=== PATIENT | male | born 1955 | race Caucasian/White ===

== ENCOUNTER 2019-09-15 11:40 | Emergency (ER) | payer MEDICAID, OTHER ==
[~2019-09-15] VITALS: Ht 175.3 cm; Wt 72.0 kg
[2019-09-15] MEDS ORDERED: TETANUS, DIPHTHERIA, PERTUSSIS VAC/PF 0.5ML (>7YR OLD) IM ONE (14:30)
[2019-09-15 15:48] LABS: BASOPHILS % 0.2 % (0.0-2.0); EOSINOPHILS % 4.9 % (0.0-5.0); HEMATOCRIT. 41.4 % (42.0-52.0); HEMOGLOBIN. 13.9 g/dL (14.0-18.0); LYMPHOCYTES % 20.8 % (20.0-50.0); MEAN CORPUSCULAR HEMOGLOBIN 32.2 pg (28.0-32.0); MEAN CORPUSCULAR VOLUME 95.7 fL (80.0-94.0); MEAN PLATELET VOLUME 7.7 fl (7.4-10.4); MONOCYTES % 4.7 % (2.0-8.0); NEUTROPHILS % 69.4 % (40.0-76.0); PLATELET 342 x1000/uL (130-400); RED BLOOD CELL COUNT 4.33 mill/uL (4.7-6.1); RED CELL DISTRIBUTION WIDTH 16.8 % (11.6-14.6)
[2019-09-15 15:55] LABS: CHLORIDE 108 mEq/L (98-107)
[2019-09-15] MEDS ORDERED: ACETAMINOPHEN 325MG TABLET PO ONE (16:45)
[2019-09-15] MEDS ORDERED: KETOROLAC 60MG/2ML VIAL IM ONE (16:45)
[2019-09-15 18:13] VITALS: BP 162/95
== END 2019-09-15 18:21 | disposition home or self-care (01) ==
LOC: ER 11:40
DX: S00.83XA Contusion of other part of head, initial encounter (principal); S40.812A Abrasion of left upper arm, initial encounter; S60.413A Abrasion of left middle finger, initial encounter; R05 Cough; R03.0 Elevated blood-pressure reading, without diagnosis of hypertension; W01.198A Fall on same level from slipping, tripping and stumbling with subsequent striking against other object, initial encounter; Y93.01 Activity, walking, marching and hiking; Y92.480 Sidewalk as the place of occurrence of the external cause; J44.9 Chronic obstructive pulmonary disease, unspecified; M54.30 Sciatica, unspecified side; Z23 Encounter for immunization
CPT/HCPCS: 36415; 70450; 70486; 71045; 80053; 83880; 84484; 85025; 90471; 90715; 93005; 96372; 99285; J1885

== ENCOUNTER 2019-11-29 15:33 | Inpatient (IN) | payer OTHER ==
[~2019-11-29] VITALS: Ht 167.6 cm; Wt 84.4 kg
[2019-11-29] MEDS ORDERED: HALOPERIDOL LACTATE 5MG/ML VIAL IM ONE (16:30)
[2019-11-29 17:01] LABS: BASOPHILS % 0.7 % (0.0-2.0); EOSINOPHILS % 1.3 % (0.0-5.0); HEMATOCRIT. 43.9 % (42.0-52.0); HEMOGLOBIN. 15.1 g/dL (14.0-18.0); LYMPHOCYTES % 19.7 % (20.0-50.0); MEAN CORPUSCULAR HEMOGLOBIN 31.3 pg (28.0-32.0); MEAN PLATELET VOLUME 7.7 fl (7.4-10.4); MONOCYTES % 4.7 % (2.0-8.0); NEUTROPHILS % 73.6 % (40.0-76.0); PLATELET 335 x1000/uL (130-400); RED BLOOD CELL COUNT 4.82 mill/uL (4.7-6.1); RED CELL DISTRIBUTION WIDTH 15.2 % (11.6-14.6)
[2019-11-29 17:04] LABS: CHLORIDE 96 mEq/L (98-107)
[2019-11-29 17:19] LABS: ETHANOL BLOOD 336 mg/dL
[2019-11-29] MEDS ORDERED: POTASSIUM CHLORIDE INJ 40 MEQ in DEXT 5% WATER 250 ML IV ONE (18:30)
[2019-11-29] MEDS ORDERED: POTASSIUM CHLORIDE INJ 40 MEQ in DEXT 5% WATER 250 ML IV SCH (19:00)
[2019-11-29 21:30] VITALS: BP 133/66
[2019-11-29] MEDS ORDERED: CEFTRIAXONE 1 G PREMIX 50 ML IV SCH (23:15)
[2019-11-29] MEDS ORDERED: ONDANSETRON HCL 4MG/2ML INJ IV PRN (23:15)
[2019-11-30] VITALS: BP 122/65
[2019-11-30] MEDS: THIAMINE HCL 100MG TABLET PO SCH (01:00)
[2019-11-30] MEDS ORDERED: CEFTRIAXONE 1 G PREMIX 50 ML IV SCH (01:00)
[2019-11-30] MEDS: DEXT 5%/0.45% NACL KCL 20MEQ/L 1,000 ML IV SCH ×3 (03:30→17:42)
[2019-11-30] MEDS: PANTOPRAZOLE SODIUM 40 MG/VIAL IV SCH (04:00)
[2019-11-30 04:29] VITALS: BP 114/50
[2019-11-30 05:55] LABS: CHLORIDE 103 mEq/L (98-107)
[2019-11-30 06:04] LABS: T4 FREE 0.92 ng/dL (0.76-1.46)
[2019-11-30 06:15] LABS: BASOPHILS % 1.4 % (0.0-2.0); EOSINOPHILS % 3.6 % (0.0-5.0); HEMATOCRIT. 41.3 % (42.0-52.0); HEMOGLOBIN. 14.2 g/dL (14.0-18.0); LYMPHOCYTES % 26.9 % (20.0-50.0); MEAN CORPUSCULAR HEMOGLOBIN 31.4 pg (28.0-32.0); MEAN CORPUSCULAR VOLUME 90.9 fL (80.0-94.0); MEAN PLATELET VOLUME 7.7 fl (7.4-10.4); MONOCYTES % 8.9 % (2.0-8.0); NEUTROPHILS % 59.2 % (40.0-76.0); PLATELET 312 x1000/uL (130-400); RED BLOOD CELL COUNT 4.54 mill/uL (4.7-6.1); RED CELL DISTRIBUTION WIDTH 14.7 % (11.6-14.6)
[2019-11-30 08:00] VITALS: BP 125/58
[2019-11-30] MEDS: ACETAMINOPHEN 325MG TABLET PO PRN ×2 (09:14→16:27)
[2019-11-30] MEDS: ENOXAPARIN 40MG/0.4ML SYR SUBCUT SCH (09:14)
[2019-11-30] MEDS ORDERED: POTASSIUM CHLORIDE 20MEQ TABLET SR PO SCH (11:00)
[2019-11-30 12:00] VITALS: BP 129/58
[2019-11-30 12:56] LABS: CHLORIDE 100 mEq/L (98-107)
[2019-11-30] MEDS ORDERED: LORAZEPAM 2MG/ML CPJ IV PRN (13:15)
[2019-11-30] MEDS ORDERED: ACETAMINOPHEN 325MG TABLET PO PRN (13:15)
[2019-11-30] MEDS ORDERED: ACETAMINOPHEN 650MG SUPP PR PRN (13:15)
[2019-11-30] MEDS ORDERED: IPRATROPIUM/ALBUTEROL 0.5-3(2.5)MG/3ML NEB HHN PRN (13:30)
[2019-11-30 13:48] LABS: BG BASE EXCESS 1.5 mmol/L (-2.0-2.0); BG CARBOXYHEMOGLOBIN 0.8 % (0.5-1.5); BG DEOXYHEMOGLOBIN 6.1 % (0.0-5.0); BG FRACTION INSPIRED OXYGEN 21; BG HCO3 ACT 25.8 mmol/L (22.0-26.0); BG METHEMOGLOBIN 0.1 % (0.0-1.5); BG OXYGEN SATURATION 93.8 % (92.0-98.5); BG PCO2 39.6 mmHg (35.0-45.0); BG PH 7.432 (7.350-7.450); BG PO2 74.1 mmHg (75.0-100.0); BG SAMPLE SITE RIGHT BRACHIAL; BG TOTAL HEMOGLOBIN 14.2 g/dL (12.0-18.0); BG VENT MODE ROOM AIR
[2019-11-30] MEDS ORDERED: POTASSIUM CHLORIDE INJ 40 MEQ in DEXT 5% WATER 250 ML IV SCH (14:30)
[2019-11-30] MEDS: NICOTINE 14MG PATCH TD SCH (14:30)
[2019-11-30] MEDS: FOLIC ACID 1MG TABLET PO SCH (14:30)
[2019-11-30] MEDS: MULTIVITAMINS,THER W-MINERALS TABLET PO SCH (14:30)
[2019-11-30] MEDS: PIPERACILLIN/TAZOBACTAM 3.375 G in DEXT 5% WATER 100 ML IV SCH ×2 (14:31→20:39)
[2019-11-30 16:00] VITALS: BP 119/58
[2019-11-30 17:11] LABS: CLARITY URINE CLEAR (CLEAR); COLOR URINE YELLOW (YELLOW); KETONES URINE NEGATIVE (NEGATIVE); LEUKOCYTE ESTERASE URINE NEGATIVE (NEGATIVE); NITRITE URINE NEGATIVE (NEGATIVE); OCCULT BLOOD URINE NEGATIVE (NEGATIVE); PH URINE 6.5 (4.5-8.0); PROTEIN URINE NEGATIVE (NEGATIVE); SPECIFIC GRAVITY URINE 1.009 (1.005-1.030); UROBILINOGEN URINE 0.2 E.U./dL (0.2-1.0)
[2019-11-30 17:27] LABS: *AMPHETAMINES SCREEN URINE NEGATIVE (NEGATIVE); *BARBITURATES SCREEN URINE NEGATIVE (NEGATIVE); *BENZODIAZEPINES SCREEN URINE NEGATIVE (NEGATIVE); *COCAINE SCREEN URINE NEGATIVE (NEGATIVE); METHADONE URINE SCREEN NEGATIVE (NEGATIVE); OPIATES URINE SCREEN NEGATIVE (NEGATIVE)
[2019-11-30 17:28] LABS: CANNABINOID URINE SCREEN NEGATIVE (NEGATIVE); PHENCYCLIDINE URINE SCREEN NEGATIVE (NEGATIVE)
[2019-11-30] MEDS ORDERED: POTASSIUM CHLORIDE 20MEQ/PACKET PO NR (17:30)
[2019-11-30] MEDS: HYDROCODONE/ACETAMINOPHEN 5/325MG TABLET PO PRN (17:43)
[2019-11-30 20:00] VITALS: BP 153/73
[2019-11-30] MEDS: BUDESONIDE 0.5MG/2ML NEB HHN SCH (20:05)
[2019-11-30] MEDS: IPRATROPIUM/ALBUTEROL 0.5-3(2.5)MG/3ML NEB HHN SCH (20:05)
[2019-11-30 20:35] LABS: INR 0.9; PROTHROMBIN TIME 9.9 sec (9.6-11.0)
[2019-11-30] MEDS: LORAZEPAM 2MG/ML CPJ IV PRN (21:53)
[2019-11-30] MEDS ORDERED: POTASSIUM CHLORIDE 20MEQ TABLET SR PO NR (22:00)
[2019-12-01] VITALS: BP 141/68
[2019-12-01] MEDS: IPRATROPIUM/ALBUTEROL 0.5-3(2.5)MG/3ML NEB HHN SCH ×4 (01:01→21:44)
[2019-12-01] MEDS: PIPERACILLIN/TAZOBACTAM 3.375 G in DEXT 5% WATER 100 ML IV SCH ×2 (02:21→09:22)
[2019-12-01] MEDS: DEXT 5%/0.45% NACL KCL 20MEQ/L 1,000 ML IV SCH ×3 (02:21→20:00)
[2019-12-01 04:00] VITALS: BP 152/80
[2019-12-01 06:49] LABS: HEMATOCRIT 41.7 % (42.0-52.0); HEMOGLOBIN 14.4 g/dL (14.0-18.0); MEAN CORPUSCULAR HEMOGLOBIN 31.5 pg (28.0-32.0); MEAN CORPUSCULAR VOLUME 91.3 fL (80.0-94.0); PLATELET 281 x1000/uL (130-400); RED BLOOD CELL COUNT 4.56 mill/uL (4.7-6.1)
[2019-12-01 07:04] LABS: CHLORIDE 103 mEq/L (98-107)
[2019-12-01] MEDS: HYDROCODONE/ACETAMINOPHEN 5/325MG TABLET PO PRN ×2 (07:17→20:14)
[2019-12-01 07:18] LABS: PHOSPHORUS 2.1 mg/dL (2.5-4.9)
[2019-12-01 07:20] LABS: HEPATITIS B SURFACE ANTIGEN NEGATIVE
[2019-12-01 07:49] LABS: HEPATITIS A AB IGM NEGATIVE (NEGATIVE)
[2019-12-01] MEDS: BUDESONIDE 0.5MG/2ML NEB HHN SCH ×3 (08:40→21:45)
[2019-12-01] MEDS ORDERED: POTASSIUM CHLORIDE 20MEQ TABLET SR PO NR (09:00)
[2019-12-01] MEDS: THIAMINE HCL 100MG TABLET PO SCH (09:23)
[2019-12-01] MEDS: PANTOPRAZOLE SODIUM 40 MG/VIAL IV SCH (09:23)
[2019-12-01] MEDS: MULTIVITAMINS,THER W-MINERALS TABLET PO SCH (09:23)
[2019-12-01] MEDS: ENOXAPARIN 40MG/0.4ML SYR SUBCUT SCH (09:23)
[2019-12-01] MEDS: FOLIC ACID 1MG TABLET PO SCH (09:24)
[2019-12-01] MEDS: NICOTINE 14MG PATCH TD SCH (09:24)
[2019-12-01] MEDS: LORAZEPAM 2MG/ML CPJ IV PRN (12:07)
[2019-12-01] MEDS ORDERED: POTASSIUM-SODIUM PHOSPHATE POWDER PACKET PO NR (13:00)
[2019-12-01] MEDS ORDERED: L25 MT ×2 (13:22→13:23)
[2019-12-01] MEDS ORDERED: THIA100T88 MT (13:23)
[2019-12-01] MEDS ORDERED: FOLI-43 MT (13:23)
[2019-12-01] MEDS: CHLORDIAZEPOXIDE 25MG CAPSULE PO SCH ×2 (14:03→21:34)
[2019-12-01] MEDS: GABAPENTIN 300MG CAPSULE PO SCH ×2 (14:04→21:34)
[2019-12-01 16:00] VITALS: BP 150/78
[2019-12-01 20:00] VITALS: BP 149/86
[2019-12-02] VITALS: BP 148/89
[2019-12-02] MEDS: DEXT 5%/0.45% NACL KCL 20MEQ/L 1,000 ML IV SCH ×3 (02:00→20:48)
[2019-12-02] MEDS: IPRATROPIUM/ALBUTEROL 0.5-3(2.5)MG/3ML NEB HHN SCH ×4 (02:05→21:59)
[2019-12-02 04:00] VITALS: BP 136/70
[2019-12-02] MEDS: CHLORDIAZEPOXIDE 25MG CAPSULE PO SCH ×3 (05:35→21:00)
[2019-12-02] MEDS: GABAPENTIN 300MG CAPSULE PO SCH ×3 (05:35→21:00)
[2019-12-02 08:00] VITALS: BP 153/88
[2019-12-02] MEDS: MULTIVITAMINS,THER W-MINERALS TABLET PO SCH (08:13)
[2019-12-02] MEDS: THIAMINE HCL 100MG TABLET PO SCH (08:13)
[2019-12-02] MEDS: FOLIC ACID 1MG TABLET PO SCH (08:13)
[2019-12-02] MEDS: NICOTINE 14MG PATCH TD SCH (08:13)
[2019-12-02] MEDS: PANTOPRAZOLE SODIUM 40 MG/VIAL IV SCH (08:13)
[2019-12-02] MEDS: ENOXAPARIN 40MG/0.4ML SYR SUBCUT SCH (08:14)
[2019-12-02 12:00] VITALS: BP 136/81
[2019-12-02 16:00] VITALS: BP 126/71
[2019-12-02 20:00] VITALS: BP 116/89
[2019-12-02] MEDS: HYDROCODONE/ACETAMINOPHEN 5/325MG TABLET PO PRN (20:49)
[2019-12-02] MEDS: BUDESONIDE 0.5MG/2ML NEB HHN SCH (21:59)
[2019-12-03] VITALS: BP 122/77
[2019-12-03] MEDS: IPRATROPIUM/ALBUTEROL 0.5-3(2.5)MG/3ML NEB HHN SCH ×3 (02:04→18:06)
[2019-12-03 04:00] VITALS: BP_SYST 124; BP_SYST 132; BP_DIAS 53; BP_DIAS 90
[2019-12-03] MEDS: DEXT 5%/0.45% NACL KCL 20MEQ/L 1,000 ML IV SCH (05:00)
[2019-12-03] MEDS: GABAPENTIN 300MG CAPSULE PO SCH ×2 (05:01→13:06)
[2019-12-03] MEDS: CHLORDIAZEPOXIDE 25MG CAPSULE PO SCH ×2 (05:01→13:06)
[2019-12-03 07:13] LABS: BASOPHILS % 1.1 % (0.0-2.0); EOSINOPHILS % 4.2 % (0.0-5.0); HEMATOCRIT. 42.4 % (42.0-52.0); HEMOGLOBIN. 14.6 g/dL (14.0-18.0); LYMPHOCYTES % 25.1 % (20.0-50.0); MEAN CORPUSCULAR HEMOGLOBIN 31.6 pg (28.0-32.0); MEAN CORPUSCULAR VOLUME 92.1 fL (80.0-94.0); MEAN PLATELET VOLUME 7.7 fl (7.4-10.4); MONOCYTES % 8.7 % (2.0-8.0); NEUTROPHILS % 60.9 % (40.0-76.0); PLATELET 232 x1000/uL (130-400); RED BLOOD CELL COUNT 4.61 mill/uL (4.7-6.1)
[2019-12-03 08:00] LABS: CHLORIDE 107 mEq/L (98-107)
[2019-12-03] MEDS: FOLIC ACID 1MG TABLET PO SCH (09:00)
[2019-12-03] MEDS: PANTOPRAZOLE SODIUM 40 MG/VIAL IV SCH (09:25)
[2019-12-03] MEDS: THIAMINE HCL 100MG TABLET PO SCH (09:26)
[2019-12-03] MEDS: MULTIVITAMINS,THER W-MINERALS TABLET PO SCH (09:26)
[2019-12-03] MEDS: ENOXAPARIN 40MG/0.4ML SYR SUBCUT SCH (09:27)
[2019-12-03] MEDS: NICOTINE 14MG PATCH TD SCH (09:28)
[2019-12-03] MEDS: BUDESONIDE 0.5MG/2ML NEB HHN SCH (09:58)
[2019-12-03 12:00] VITALS: BP 137/74
[2019-12-03] MEDS: HYDROCODONE/ACETAMINOPHEN 5/325MG TABLET PO PRN ×2 (12:15→20:36)
[2019-12-03 16:00] VITALS: BP 146/79
[2019-12-03] MEDS: LORAZEPAM 2MG/ML CPJ IV PRN (16:52)
[2019-12-03 18:35] VITALS: BP 146/79
[2019-12-03 20:36] VITALS: BP 146/79
[2019-12-03] MEDS ORDERED: FAMOTIDINE 20MG/2ML VIAL IV SCH (21:00)
== END 2019-12-03 21:00 | DRG 139 ==
LOC: ER 15:33 → ENRESERV 20:25 → 6WST 21:27 → 6EST 12-03 11:23
PROVIDERS: ADMIT Internal Medicine; ATTEND Internal Medicine
DX: J18.9 Pneumonia, unspecified organism (principal); G93.41 Metabolic encephalopathy; J44.0 Chronic obstructive pulmonary disease with (acute) lower respiratory infection; G62.9 Polyneuropathy, unspecified; F10.129 Alcohol abuse with intoxication, unspecified; J44.1 Chronic obstructive pulmonary disease with (acute) exacerbation; I10 Essential (primary) hypertension; E87.6 Hypokalemia; E86.0 Dehydration; Y90.8 Blood alcohol level of 240 mg/100 ml or more; F17.210 Nicotine dependence, cigarettes, uncomplicated; F41.9 Anxiety disorder, unspecified; M54.30 Sciatica, unspecified side; D72.829 Elevated white blood cell count, unspecified; Z91.19 Patient's noncompliance with other medical treatment and regimen; Z71.41 Alcohol abuse counseling and surveillance of alcoholic; Z86.15 Personal history of latent tuberculosis infection
CPT/HCPCS: 36415; 36600; 71045; 80048; 80051; 80053; 80305; 80320; 81003; 82140; 82375; 82805; 83036; 83735; 84100; 84439; 84443; 84484; 85025; 85027; 86705; 86709; 86803; 87340; 87804; 93005; 97116; 97162; 97530; 99285; C9113; J0696; J1630; J1650; J2060; J2543; J3480; J7060; J7626; G0480